=== PATIENT | male | born 1965 | race Caucasian/White ===

== ENCOUNTER → 2016-09-03 | Outpatient (CLI) | payer OTHER ==
[~2016-09-03] MED LIST: AMOXIL500 M1 PO; ATARAX25 MG PO; BACTRIM DS 8001 TA1 PO; BACTRIM DS 8001 TAB PO; BENADRYL25 MG PO; CLEOCIN150 MG PO; CLINDAMYCIN300 MG PO; FLEXERIL5 MG PO; HYDROCODONE BIT1 T11 PO; IBU800 M1 PO; KEFLEX500 MG PO; MOTRIN800 MG PO; NO DAILY MEDS; PREDNICOT10 MG PO; PREDNICOT20 MG PO; TRAMADOL HCL50 MG PO; ULTRAM50 MG PO; VICODIN 5/500 505 MG PO; VISTARIL25 MG PO
--- NOTE | ~2016-09-03 | ST ---
[place], [place] EXERCISE STRESS TEST REPORT NAME: [facility]: [id number] UNIT #: [id number] ROOM: DOCTOR: JAKOB EMERSON MD BIRTHDATE: [birth year] DOS: 09/03/2016 PHARMACOLOGIC STRESS TEST INDICATIONS: Chest pain, family history of coronary artery disease. PROCEDURE: The patient was given a rapid infusion of regadenoson 0.4 mg intravenously followed by a saline flush. He had a warm feeling in his chest with mild nausea, which all resolved spontaneously. The resting heart rate of 80 khoa to 103. The resting blood pressure of 122/68 fell to 122/62. He had no diagnostic electrocardiographic changes. Forty seconds after the infusion of regadenoson, he was given radionuclide intravenously. IMPRESSION: 1. Well tolerated infusion of regadenoson. 2. Radionuclide injected. Please see the separate imaging report for further details of the patient's stress test results. JAKOB EMERSON MD CM:STRESS:EXERCISE STRESS TEST REPORT [id number] JAKOB EMERSON MD
== END | disposition home or self-care (01) ==
LOC: CARD 00:41
DX: I31.3 Pericardial effusion (noninflammatory) (principal); I07.1 Rheumatic tricuspid insufficiency

== ENCOUNTER 2017-03-26 07:51 | Emergency (ER) | payer OTHER ==
[~2017-03-26] VITALS: Ht 185.4 cm; Wt 93.0 kg
[2017-03-26] MEDS ORDERED: Motrin,Rufen800 MG PO (09:47)
== END 2017-03-26 10:36 | disposition home or self-care (01) ==
LOC: ED 07:51
DX: S60.221A Contusion of right hand, initial encounter (principal); Z88.1 Allergy status to other antibiotic agents; Z88.7 Allergy status to serum and vaccine

== ENCOUNTER 2020-02-28 12:41 | Emergency (ER) | payer SELFPAY ==
[~2020-02-28] VITALS: Ht 185.4 cm; Wt 102.1 kg
[~2020-02-28 12:41] MED LIST changes: +Motrin,Rufen800 MG PO
[2020-02-28] MEDS ORDERED: SEPTDS PO (13:26)
[2020-02-28] MEDS ORDERED: CEPHALEXIN500 M1 PO (13:26)
== END 2020-02-28 13:34 | disposition home or self-care (01) ==
LOC: ED 12:41
DX: S30.860A Insect bite (nonvenomous) of lower back and pelvis, initial encounter (principal); L08.9 Local infection of the skin and subcutaneous tissue, unspecified; Z88.1 Allergy status to other antibiotic agents; W57.XXXA Bitten or stung by nonvenomous insect and other nonvenomous arthropods, initial encounter; Y93.89 Activity, other specified; Y92.89 Other specified places as the place of occurrence of the external cause; Y99.8 Other external cause status

== ENCOUNTER → 2023-09-13 | Outpatient (CLI) | payer MEDICARE, MEDICAID ==
[~2023-09-13] MED LIST changes: +CEPHALEXIN500 M1 PO; +OXYCODONE HCL5 MG PO; +Regadenoson 0.4 MG/5 ML SYR IV ONE; +SEPTDS PO; +Technetium Tc 99M Tetrofosmi 0.23 MG KIT IJ SCH
== END | disposition home or self-care (01) ==
LOC: CARD 01:22
PROVIDERS: ATTEND Family Medicine
DX: R07.89 Other chest pain (principal)

== ENCOUNTER → 2023-09-29 | Outpatient (CLI) | payer MEDICARE, MEDICAID ==
[~2023-09-29] MED LIST changes: -Regadenoson 0.4 MG/5 ML SYR IV ONE; -Technetium Tc 99M Tetrofosmi 0.23 MG KIT IJ SCH
== END | disposition home or self-care (01) ==
LOC: RAD 12:31
PROVIDERS: ATTEND Family Medicine
DX: M19.041 Primary osteoarthritis, right hand (principal)